=== PATIENT | female | born 1955 | race Caucasian/White ===

== ENCOUNTER 2020-05-12 04:21 | Day surgery (SDC) | payer OTHER ==
[2020-05-11 12:01] VITALS: BMI 23.3
[2020-05-12] MEDS ORDERED: LIDOCAINE HCL 1% PRESERVATIVE FREE - 30ML VIAL IJ ONE (10:27)
[2020-05-12] MEDS ORDERED: IOHEXOL 180 MG/1 ML ML IJ ONE (10:27)
[2020-05-12] MEDS ORDERED: DEXAMETHASONE SOD PHOSPHATE 10 MG/1 ML VIAL IVPUSH ONE (10:27)
[2020-05-12 10:55] VITALS: TEMP 97.4
[2020-05-12 12:05] VITALS: BP 102/69; PULSE 80
== END 2020-05-12 12:10 | disposition home or self-care (01) ==
LOC: JASU-SURG 04:21
PROVIDERS: ATTEND Pain Medicine Pain Medicine
PROC: 3E0R33Z Introduction of Anti-inflammatory into Spinal Canal, Percutaneous Approach (ICD-10-PCS; 2020-05-12)
PROC: 3E0R3BZ Introduction of Anesthetic Agent into Spinal Canal, Percutaneous Approach (ICD-10-PCS; principal; 2020-05-12 10:00)
DX: M48.061 Spinal stenosis, lumbar region without neurogenic claudication (principal); M47.816 Spondylosis without myelopathy or radiculopathy, lumbar region
CPT/HCPCS: 76000-TC-FY; J1100